=== PATIENT | male | born 1950 | race Two or more races ===

== ENCOUNTER → 2025-05-04 | Emergency (ER) | payer OTHER ==
[~2025-05-04] VITALS: Ht 152.4 cm; Wt 95.3 kg
[~2025-05-04] MED LIST: 0.9 % SODIUM CHLORIDE 1,000 ML IV SCH; ANUSOL-HC30 G2 TOP; CATAFLAM50 MG PO; CIPRO500 MG PO; CLEOCIN HCL300 MG PO; FAMOTIDINE/PF 20 MG/2 ML VIAL ONE; FAMOtidine 10 MG/ML (4ML VIAL) IV PUSH ONE; HYOSCYAMINE SULFATE 0.125 MG TAB.SUBL ONE; HYOSCYAMINE SULFATE 0.125 MG TAB.SUBL SL ONE; LEVSIN/SL0.125 MG SL; LISINOPRIL40 MG; METRONIDAZOLE500 MG PO; MORPHINE SULFATE 4 MG/ML CARTRIDGE IV ONE; MOTRIN800 MG PO; NEURONTIN300 MG PO; ONDANSETRON HCL 2 MG/ML VIAL ONE; ONDANSETRON HCL 4 MG in 0.9 % SODIUM CHLORIDE 50 ML IV ONE; ORPH100T PO
[2025-05-04 06:41] VITALS: BP 132/88; O2SAT 99
[2025-05-04 08:14] LABS: BASO % 0.5 % (0.1-1.2); EOS # 0.23 (0.04-0.54); EOS % 2.4 % (0.7-7.0); LYMPH # 2.25 (1.18-3.74); LYMPH % 23.0 % (19.3-53.1); MEAN PLATELET VOLUME 10.80 fl (9.4-12.4); MONO # 0.88 (0.24-0.82); MONO % 9.0 % (4.7-12.5); NEUT # 6.29 (1.56-6.13); NEUT % 64.4 % (34.0-71.1); RED CELL DISTRIBUTION WIDTH 15.4 % (11.6-14.4)
[2025-05-04 08:18] LABS: ERYTHROCYTE SEDIMENTATION RATE 18 mm/hr (0-20)
[2025-05-04 08:41] LABS: ALT/SGPT 36.0 U/L (12-78); AST/SGOT 18.0 U/L (15-37); BILIRUBIN TOTAL 0.51 mg/dL (0.3-1.2); BUN CREA RATIO 16.0 (7.0-25.0); CREATININE SERUM 1.08 mg/dL (0.70-1.30); GFR 66.84; GLOBULINA 3.2 G/DL (2.4-3.5); GLUCOSE FASTING 83.0 mg/dL (65-100); OSMOLALITY SERUM 284.0 MOSM/KG (275-295)
[2025-05-04 08:44] LABS: INR 0.96
[2025-05-04 09:56] LABS: URINE APPEARANCE Clear; URINE BILIRRUBIN Negative (NEGATIVE); URINE BLOOD Negative; URINE COLOR Yellow; URINE GLUCOSE Negative (NEGATIVE); URINE KETONE Negative (NEGATIVE); URINE LEUKOCYTE Negative; URINE NITRATE Negative; URINE PROTEIN Negative (NEGATIVE); URINE UROBILINOGEN 0.2 E.U./dl
[2025-05-04 09:59] LABS: URINE BACTERIA 33.5 uL (0.0-1933); URINE EPITHELIAL CELLS 6.4 uL (0.0-38.8); URINE WBC 4.4 uL (0.0-23.2)
[2025-05-04 10:12] LABS: URINE CAST 0.29 uL (0.0-1.40); URINE RBC 1.4 uL (0.0-20.8)
== END | disposition home or self-care (01) ==
LOC: ER
PROVIDERS: General Practice
DX: K62.5 Hemorrhage of anus and rectum (principal); K52.89 Other specified noninfective gastroenteritis and colitis; N40.0 Benign prostatic hyperplasia without lower urinary tract symptoms; I10 Essential (primary) hypertension; M06.8A Other specified rheumatoid arthritis, other specified site; Z85.028 Personal history of other malignant neoplasm of stomach; K57.30 Diverticulosis of large intestine without perforation or abscess without bleeding; K64.8 Other hemorrhoids
CPT/HCPCS: 36415; 74177; 96365; 99284; J2270; J2405; J3490; J7030; Q9965